=== PATIENT | male | born 1975 | race Two or more races ===

== ENCOUNTER 2017-09-10 13:19 | Emergency (ER) | payer OTHER ==
--- NOTE | 2017-09-10 14:03 | ED ---
General Adult HPI - General Chief complaint: Urogenital Stated complaint: Blood in Urine Time Seen by Provider: 09/10/17 13:46 Source: patient, RN notes reviewed Mode of arrival: ambulatory Limitations: no limitations - History of Present Illness Initial comments: Patient 41-year-old male who presents emergency room today with chief complaint of hematuria. He does admit that he's had this off and on over the last year. He says started once again this past week. He states is due to a cock ring that was placed up his urethra approximately year ago. He does admit that he has been to the hospital I have full times for this. He states is usually sent home. He states he did see a urologist once. He states a cystoscopy was performed but was unable to remove this at the time. States he does not have the money to follow back up with his urologist. He states over the last week she's noticed hematuria once again. He states he has some dysuria symptoms off- and-on. He states he takes [id number] Azo for this. Patient denies any recent fever, chills, shortness of breath, chest pain, back pain, abdominal pain , nausea or vomiting, numbness or tingling, constipation or diarrhea, headaches or visual changes, or any other complaints. - Related Data Previous Rx's Medication Instructions Recorded Sulfamethox-Tmp 800-160Mg [Bactrim 1 tab PO Q12HR #20 tab 09/10/17 DS 800-160 mg] Allergies Allergy/AdvReac Type Severity Reaction Status Date / Time No Known Allergies Allergy Verified 09/10/17 14:19 Review of Systems ROS Statement: Those systems with pertinent positive or pertinent negative responses have been documented in the HPI. ROS Other: All systems not noted in ROS Statement are negative. Past Medical History Past Medical History: No Reported History History of Any Multi-Drug Resistant Organisms: None Reported Past Surgical History: Orthopedic Surgery Additional Past Surgical History / Comment(s): knee, sinus Past Psychological History: No Psychological Hx Reported Smoking Status: Current every day smoker Past Alcohol Use History: Occasional Past Drug Use History: Marijuana General Exam - General Exam Comments Initial Comments: General: The patient is awake and alert, in no distress, and does not appear acutely ill. Eye: Pupils are equal, round and reactive to light, extra-ocular movements are intact. No nystagmus. There is normal conjunctiva bilaterally. No signs of icterus. Ears, nose, mouth and throat: There are moist mucous membranes and no oral lesions. Neck: The neck is supple, there is no tenderness or JVD. Cardiovascular: There is a regular rate and rhythm. No murmur, rub or gallop is appreciated. Respiratory: Lungs are clear to auscultation, respirations are non-labored, breath sounds are equal. No wheezes, stridor, rales, or rhonchi. Gastrointestinal: Soft, non-distended, non-tender abdomen without masses or organomegaly noted. There is no rebound or guarding present. No CVA tenderness. Bowel sounds are unremarkable. Musculoskeletal: Normal ROM, no tenderness. Strength 5/5. Sensation intact. Pulses equal bilaterally 2+. Neurological: A&O x 3. CN II-XII intact, There are no obvious motor or sensory deficits. Coordination appears grossly intact. Speech is normal. Skin: Skin is warm and dry and no rashes or lesions are noted. Psychiatric: Cooperative, appropriate mood & affect, normal judgment. Limitations: no limitations Course Vital Signs 09/10/17 09/10/17 13:33 15:23 Temperature 98.0 F Pulse Rate 79 83 Respiratory 18 18 Rate Blood Pressure 107/75 113/70 O2 Sat by Pulse 99 97 Oximetry Medical Decision Making - Medical Decision Making Case discussed in detail with attending physician Dr. Farris. Patient's x-ray unremarkable. Urinalysis does show evidence for infection. Given gram of Rocephin here in the emergency room. He does admit that this occurred approximately a year ago. States he has not seen urologist recently but did see them once the past for cystoscopy. Patient advised that he can use over-the -counter Azo for discomfort. Will be continued on antibiotics advised follow- up serology over the next 2 days. - Lab Data Lab Results 09/10/17 Range/Units 14:28 Urine Color Yellow Urine Appearance Cloudy (Clear) Urine pH 6.0 (5.0-8.0) Ur Specific Lena 1.019 (1.001-1.035) Urine Protein 1+ H (Negative) Urine Glucose (UA) Negative (Negative) Urine Ketones Negative (Negative) Urine Blood Moderate H (Negative) Urine Nitrite Positive (Negative) Urine Bilirubin Negative (Negative) Urine Urobilinogen <2.0 (<2.0) mg/dL Ur Leukocyte Esterase Moderate H (Negative) Urine RBC 53 H (0-5) /hpf Urine WBC 65 H (0-5) /hpf Ur Squamous Epith Cells <1 (0-4) /hpf Urine Bacteria Rare H (None) /hpf Urine Mucus Rare H (None) /hpf Disposition Clinical Impression: UTI (urinary tract infection) Disposition: HOME SELF-CARE Condition: Good Instructions: Urinary Tract Infection in Men (ED) Additional Instructions: Please use medication as discussed. Please follow-up with urologist in the next 2 days of symptoms have not improved. Please return to emergency room if the symptoms increase or worsen or for any other concerns. Prescriptions: Sulfamethox-Tmp 800-160Mg [Bactrim DS 800-160 mg] 1 tab PO Q12HR #20 tab Referrals: None,Stated [Primary Care Provider] - 1-2 days Alvarez Alarcon MD [STAFF PHYSICIAN] - 1-2 days Time of Disposition: 15:39
[2017-09-10 14:32] LABS: Appearance,Urine Cloudy (Clear); Bacteria,Urine Rare /hpf; Bilirubin,Urine Negative (Negative); Glucose,Urine (UA) Negative (Negative); Ketones,Urine Negative (Negative); Leukocyte Esterase,Urine Moderate (Negative); Mucus,Urine Rare /hpf; Nitrite,Urine Positive (Negative); Particle Count 3699; Protein,Urine 1+ (Negative); RBC,Urine 53 /hpf (0-5); Specific Gravity,Urine 1.019 (1.001-1.035); Squamous Epithelial Cell,Urine <1 /hpf (0-4); UA Billing (MACRO vs. MICRO) MICRO; Urobilinogen,Urine <2.0 mg/dL (<2.0); WBC,Urine 65 /hpf (0-5)
--- NOTE | 2017-09-10 15:29 | XR ---
EXAMINATION TYPE: XR KUB DATE OF EXAM: 09/10/2017 3:19 PM CLINICAL HISTORY: Abdominal pain with blood in urine. TECHNIQUE: Two Upright KUB images of the abdomen are obtained. COMPARISON: None. FINDINGS: Scattered gas is seen in non-distended stomach and small bowel loops. Gas and fecal materia l is seen in non-distended colon. There is no visceromegaly, pneumoperitoneum, or abnormal calcificat ion appreciated. The lung bases are clear and the osseous structures are intact. IMPRESSION: Overall nonobstructive bowel gas pattern. No definite nephrolithiasis.
[2017-09-10] MEDS ORDERED: cefTRIAXone 1,000 MG VIAL (IM USE) IM STA (15:37)
[2017-09-10 15:53] VITALS: BP 118/60; PULSE 77; RESP 16; TEMP 97.6
== END 2017-09-10 16:22 | disposition home or self-care (01) ==
LOC: EC 13:19
DX: N39.0 Urinary tract infection, site not specified (principal); F17.200 Nicotine dependence, unspecified, uncomplicated
CPT/HCPCS: 81001; 87086; 74000; 99283; 96372; J0696